=== PATIENT | female | born 1985 | race Caucasian/White ===

== ENCOUNTER 2020-10-25 17:22 | Emergency (ER) | payer BC, SELFPAY ==
--- NOTE | ~2020-10-25 | XR_ITS ---
EXAMINATION: XR knee RT 3V EXAM DATE: 10/25/2020 18:45 INDICATION: Initial encounter following injury, with pain of the right knee. TECHNIQUE: Three projections of the right knee. There is no prior study for comparison. FINDINGS: No evidence osteochondral defect or joint body in the right knee joint. There are no acut e fractures or dislocations identified. There is no subcutaneous gas. The soft tissue is unremarkab le. There are no radiopaque foreign bodies. IMPRESSION: 1. XR knee RT 3V exam without acute osseous findings. Reviewed, dictated and finalized at location A.
--- NOTE | ~2020-10-25 | XR_ITS ---
EXAMINATION: XR ankle RT min 3V EXAM DATE: 10/25/2020 18:44 INDICATION: Initial encounter following injury, with pain of the right ankle. TECHNIQUE: Right ankle frontal, lateral and oblique projections obtained and reviewed. There is no p rior study for comparison. FINDINGS: The right ankle mortise appears intact. There are no acute fractures or dislocations iden tified. There is no subcutaneous gas. The soft tissue is unremarkable. There are no radiopaque fo reign bodies. IMPRESSION: 1. XR ankle RT min 3V exam without acute osseous findings. Reviewed, dictated and finalized at location A.
[2020-10-25 18:02] VITALS: BP 123/77; PULSE 96; RESP 16; TEMP 37.2; O2SAT 99
--- NOTE | 2020-10-25 18:21 | PC.NURSE ---
Xray at bedside.
[2020-10-25] MEDS: ACETAMINOPHEN 500 MG TABLET 1000 MG PO (19:19)
--- NOTE | 2020-10-25 19:52 | ED.LOWEXIN ---
HPI - Extremity Injury (Lower) General Chief Complaint: Extremity Injury, Lower Stated Complaint: FALL DOWN STEPS, R LEG INJURY Time Seen by Provider: 10/25/20 18:47 Source: patient Mode of arrival: EMS Limitations: no limitations History of Present Illness HPI Narrative: This is a 35-year-old female that presents to the emergency department after a fall down steps today. Reports she tripped and fell down about 6 steps. Reports pain in the right knee and ankle since the fall. Denies other injuries, hitting her head or loss of consciousness. Reports bruising and superficial abrasions to the area. Denies decreased range of motion or numbness. Related Data Allergies Allergy/AdvReac Type Severity Reaction Status Date / Time No Known Allergies Allergy Verified 10/25/20 18:06 Review of Systems Review of Systems: Narrative: CONSTITUTIONAL: Denies fever MUSCULOSKELETAL: Reports joint pain, and myalgia. NEUROLOGIC: Denies numbness, or weakness. All systems reviewed & are unremarkable except as noted in HPI and below PMFSH Past Medical History Medical History (Updated 10/25/20 @ 20:28 by Dipika Barrett PA-C) Anxiety and depression Family History Family History (Updated 02/21/18 @ 12:59 by DOCTOR UNKNOWN) Mother Diabetes mellitus Hypertension Social History Social History Smoking status: Never smoker Exam Narrative: Exam Narrative: GENERAL: Well-appearing, well-nourished, and in no acute distress. HEAD: Normocephalic, atraumatic. EYES: PERRLA and EOMI. ENT: Nares clear, no rhinorrhea or epistaxis. Mucous membranes moist. Oropharynx without tonsillar hypertrophy exudate or other lesions. Bilateral TMs pearly steve non-bulging NECK: Supple. No adenopathy or masses. No midline cervical spine tenderness CHEST: Clear to auscultation. No respiratory distress. No wheezes rales or rhonchi HEART: Regular rate and rhythm. No murmur heard. Normal peripheral pulses. BACK: No midline thoracic or lumbar spine tenderness EXTREMITIES: Normal range of motion. No edema or obvious deformity. Right jimenez with superficial abrasions and bruising. Normal DP pulses. Normal sensation SKIN: Warm, dry, no rash. NEURO: No focal deficits. Alert and oriented x3. PSYCH: Normal mood and affect Course Vital Signs Vital signs: Vital Signs Temperature 98.9 F 10/25/20 18:02 Pulse Rate 96 10/25/20 18:02 Respiratory Rate 16 10/25/20 18:02 Blood Pressure 123/77 10/25/20 18:02 Pulse Oximetry 99 10/25/20 18:02 Temperature 98.9 F 10/25/20 18:02 Pulse Rate 96 10/25/20 18:02 Respiratory Rate 16 10/25/20 18:02 Blood Pressure 123/77 10/25/20 18:02 Pulse Oximetry 99 10/25/20 18:02 MDM - Extremity Injury (Lower) MDM Narrative Medical decision making narrative: Patient presents to the emergency department for right knee and ankle pain after a fall down steps. Denies hitting her head or loss of consciousness. She is neurologically intact. Right ankle and knee x-rays are without acute osseous abnormalities. Patient placed in Yvan wrap and given crutches. Instructed on care of ankle sprain. She is to follow-up with primary care doctor. She was given warnings to return to the ER Imaging Data Radiologist's impression: ITS Impressions Ankle X-Ray 10/25/20 18:56 IMPRESSION: 1. XR ankle RT min 3V exam without acute osseous findings. Knee X-Ray 10/25/20 18:58 IMPRESSION: 1. XR knee RT 3V exam without acute osseous findings. Critical Care Time Critical Care Time Critical Care Time: No Discharge Plan Discharge Clinical Impression: Right ankle sprain Qualifiers: Encounter type: initial encounter Involved ligament of ankle: unspecified ligament Qualified Code(s): S93.401A - Sprain of unspecified ligament of right ankle, initial encounter Contusion of leg, right Qualifiers: Encounter type: initial encounter Qualified Code(s): S80.11XA - Contusion of right lower leg,
[2020-10-25] MEDS: KETOROLAC (*BKC) 60 MG/2 ML VIAL IM (21:02)
[2020-10-25 21:22] VITALS: BP 121/68; PULSE 89; RESP 16; O2SAT 100
== END 2020-10-25 21:10 | disposition home or self-care (01) ==
PROVIDERS: Emergency Provider Emergency Medicine; PCP Family Medicine
DX: S93.401A Sprain of unspecified ligament of right ankle, initial encounter (principal); S80.11XA Contusion of right lower leg, initial encounter; W10.9XXA Fall (on) (from) unspecified stairs and steps, initial encounter
CPT/HCPCS: 73562; 73610; 96372; 99283; A9270; J1885

== ENCOUNTER 2020-11-05 09:53 | Outpatient (CLI) | payer BC, SELFPAY ==
--- NOTE | ~2020-11-05 | MR_ITS ---
EXAMINATION: MR ankle RT wo con DATE: 11/05/2020 10:56 INDICATION: Right ankle injury post fall down stairs TECHNIQUE: Magnetic resonance imaging (MRI) of the right ankle was performed without intravenous cont rast. Sequences included sagittal, coronal, and axial proton-density weighted fast spin echo without and with fat saturation. COMPARISON: None. FINDINGS: Medial ankle ligaments: Deep and superficial deltoid ligaments as well as the spring ligament are normal. Lateral ankle ligaments: The anterior and posterior inferior tibiofibular ligaments are normal. The anterior talofibular, calc aneofibular and posterior talofibular ligaments are normal. Tendons: Achilles tendon is normal. The peroneus longus and brevis tendons are normal. The tibialis anterior a nd extensor hallucis longus and extensor digitorum longus tendons are normal. The tibialis posterior, flexor digitorum longus and flexor hallucis longus tendons are normal. Plantar fascia: Plantar aponeurosis is normal. Bones/other: Bone alignment is normal. Bone island at the medial body of the calcaneus. Otherwise normal marrow si gnal throughout with no reactive edema/contusion, fracture or pathologic marrow replacing process. Micki int spaces are normal. Lisfranc ligament complex is normal. Sinus Tarsi and tarsal tunnel are unremar kable. Fluid: Physiologic amount fluid in the joint spaces. No tenosynovitis, bursitis or other abnormal loculated fluid collections. There is subcutaneous edema most prominent of the dorsum of the mid and forefoot. Additional soft tissue swelling and subcutaneous edema anterior to the distal tibia medial underlying the marker indicating the region of concern which given the history of trauma most likely represents a soft tissue contusion. Finally there is some edema at [place] fat pad. IMPRESSION: 1. Soft tissue swelling and subcutaneous edema underlying the marker anterior to the distal tibia mos t likely post traumatic soft tissue contusion. 2. No acute osseous abnormality with normal tendons and stabilizing ligaments at the right ankle, mid and hindfoot. Reviewed, dictated and finalized at location A. IMPRESSION: 1. Soft tissue swelling and subcutaneous edema underlying the marker anterior t o the distal tibia most likely post traumatic soft tissue contusion. 2. No acute osseous abnormality with normal tendons and stabilizing ligaments a t the right ankle, mid and hindfoot.
== END 2020-11-05 09:54 ==
DX: S93.401A Sprain of unspecified ligament of right ankle, initial encounter (principal); X58.XXXA Exposure to other specified factors, initial encounter
CPT/HCPCS: 73721

== ENCOUNTER 2021-12-18 17:05 | Inpatient (IN) | payer BC, SELFPAY ==
[2021-12-18] VITALS (43 sets, daily range): BP systolic 101–146; BP diastolic 71–127; PULSE 72–101; TEMP 36.3–36.8; O2SAT 98–100; BMI 29.8
[2021-12-18 20:01] LABS: Basophils Percent Auto 0.3 % (0.2-1.2); Eosinophils Absolute Auto 0.1 K/mm3 (0-0.3); Hematocrit 36.8 % (37.0-47.0); Hemoglobin 12.5 g/dL (12.0-15.0); Immature Granulocyte Absolute 0.06 K/mm3 (0.00-0.031); Immature Granulocyte Percent A 0.6 % (0-0.5); Lymphocytes Percent Auto 17.7 % (18.3-44.2); Mean Corpuscular Hemoglobin 30.5 pg (26-34); Mean Corpuscular Volume 89.8 fl (80-100); Monocytes Absolute Auto 0.6 K/mm3 (0.1-0.6); Monocytes Percent Auto 5.4 % (2.6-8.5); Neutrophils Absolute Auto 7.7 K/mm3 (1.3-6.7); Platelet Count Result 156 k/mm3 (150-375); Red Cell Distribution Width 14.9 % (11.5-14.5); White Blood Count 10.2 K/mm3 (4.5-10.0)
[2021-12-18] MEDS: FAMOTIDINE 20 MG/2 ML VIAL IV PUSH (21:45)
[2021-12-18] MEDS: LACTATED RINGERS 1,000 ML 125 ML IV CONT (22:00)
[2021-12-18] MEDS: fentaNYL CITRATE INJ (*CRX) 100 MCG/2 ML VIAL 50 MCG IV PUSH (22:48)
--- NOTE | 2021-12-18 22:51 | P.PNAN_ITS ---
Anes - Eval Pre Procedure Procedure: labor epidural Date/Time: 12/18/21 22:51 Surgeon: joaquin Preop Diagnosis: pain during labor Pre Op Diagnosis: SROM Patient Data Age: 36 Gender: F Height: 1.8 m Weight: 97 kg Last Vital Signs Pulse 88 12/18/21 19:31 BP 117/83 12/18/21 19:31 Allergies Allergy/AdvReac Type Severity Reaction Status Date / Time No Known Allergies Allergy Verified 12/07/21 15:21 Home Medications Medication Instructions Recorded Confirmed Type fluoxetine 20 mg capsule (Prozac) 20 mg PO DAILY #90 caps 11/21/19 11/21/19 Rx prenat.vits,felicia,xpf-bruv-vahme 1 tablet PO HS 12/07/21 12/07/21 History Laboratory Tests 12/18/21 12/18/21 12/18/21 19:55 19:55 19:55 WBC 10.2 K/mm3 H K/mm3 (4.5-10.0) RBC 4.10 M/mm3 L M/mm3 (4.2-5.4) Hgb 12.5 g/dL g/dL (12.0-15.0) Hct 36.8 % L % (37.0-47.0) MCV 89.8 fl fl (80-100) MCH 30.5 pg pg (26-34) MCHC 34.0 g/dl g/dl (32-36) RDW 14.9 % H % (11.5-14.5) Plt Count 156 k/mm3 k/mm3 (150-375) MPV 12.0 fl H fl (7.4-10.4) Immature Gran % (Auto) 0.6 % H % (0-0.5) Neut % (Auto) 75.0 % H % (45.5-73.1) Lymph % (Auto) 17.7 % L % (18.3-44.2) [place] % (Auto) 5.4 % % (2.6-8.5) Eos % (Auto) 1.0 % % (0-4.4) Baso % (Auto) 0.3 % % (0.2-1.2) Lymph # (Auto) 1.80 K/mm3 K/mm3 (0.9-3.2) [place] # (Auto) 0.6 K/mm3 K/mm3 (0.1-0.6) Eos # (Auto) 0.1 K/mm3 K/mm3 (0-0.3) Baso # (Auto) 0.0 K/mm3 K/mm3 (0.0-0.1) Abs Immat Gran (auto) 0.06 K/mm3 H K/mm3 (0.00-0.031) Absolute Neuts (auto) 7.7 K/mm3 H K/mm3 (1.3-6.7) Absolute Nucleated RBC 0.0 K/mm3 K/mm3 (0.0-0.012) Nucleated RBC % 0.0 % % (0.0-0.2) RPR Pending Blood Type B Positive Antibody Screen Negative Patient hx anesthesia problems: none Family hx anesthesia problems: none Results Review: All pre-operative results and documents have been reviewed as part of the pre- operative evaluation. [facility] Past Medical History Medical History (Updated 10/26/20 @ 00:00 by Avi Crisostomo) Anxiety and depression Family History Family History (Updated 12/07/21 @ 15:33 by Caleb Levine RN) Mother Diabetes mellitus Bipolar 1 disorder Hypertension Parkinson disease Sibling Cervical cancer Social History Social History Smoking status: Never smoker Substance use: never Spiritual care concerns: No Exam Day of Procedure 12/18/21 22:51
[2021-12-19] VITALS (145 sets, daily range): BP systolic 106–145; BP diastolic 65–114; PULSE 63–287; RESP 16–18; TEMP 36.3–36.8; O2SAT 83–100
[2021-12-19] MEDS: OXYTOCIN 30 UNITS/NS 500 ML 30 UNITS/500 ML BAG IV CONT
[2021-12-19] MEDS: OXYTOCIN 30 UNITS/NS 500 ML 30 UNITS/500 ML BAG 125 UNITS IV CONT (05:39)
--- NOTE | 2021-12-19 06:37 | PM.IMHP ---
H&P: HPI History of Present Illness Date/Time: 12/19/21 06:37 Chief Complaint: Leakage of fluid. Narrative: 36 y/o at 39 6/7 weeks who had a gush of fluid. SROM confirmed on labor and delivery. Contractions worsened subsequently. She was given an epidural. Six hours after SROM, oxytocin was begun IV for labor augmentation. Review of Systems Review of Systems: All systems reviewed & are unremarkable except as noted in HPI and below PMFSH Past Medical History Medical History Anxiety and depression Family History Family History Mother Diabetes mellitus Bipolar 1 disorder Hypertension Parkinson disease Sibling Cervical cancer Social History Social History Smoking status: Never smoker Substance use: never Spiritual care concerns: No Meds Home Medications and Allergies Home Medications Medication Instructions Recorded Confirmed Type fluoxetine 20 mg capsule (Prozac) 20 mg PO DAILY #90 caps 11/21/19 11/21/19 Rx prenat.vits,felicia,zqm-yxlp-hrekd 1 tablet PO HS 12/07/21 12/07/21 History Allergies Allergy/AdvReac Type Severity Reaction Status Date / Time No Known Allergies Allergy Verified 12/07/21 15:21 Vital Signs Vital Signs - 24 hr 12/18/21 19:16 12/18/21 19:31 12/18/21 22:55 Pulse Rate 87 88 Blood Pressure 134/87 117/83 Pulse Oximetry 98 12/18/21 22:56 12/18/21 22:59 12/18/21 23:00 Pulse Rate 94 93 Blood Pressure 140/88 125/88 Pulse Oximetry 99 12/18/21 23:01 12/18/21 23:03 12/18/21 23:05 Pulse Rate 101 H 90 Blood Pressure 121/94 H 136/86 Pulse Oximetry 99 12/18/21 23:06 12/18/21 23:08 12/18/21 23:10 Pulse Rate 93 99 Blood Pressure 136/97 H 129/90 Pulse Oximetry 99 12/18/21 23:11 12/18/21 23:14 12/18/21 23:15 Pulse Rate 84 85 Blood Pressure 144/90 H 146/127 H Pulse Oximetry 100 12/18/21 23:16 12/18/21 23:18 12/18/21 23:20 Pulse Rate 81 90 Blood Pressure 131/77 138/78 Pulse Oximetry 99 12/18/21 23:21 12/18/21 23:23 12/18/21 23:25 Pulse Rate 83 83 Blood Pressure 101/80 122/82 Pulse Oximetry 99 12/18/21 23:26 12/18/21 23:28 12/18/21 23:30 Pulse Rate 78 79 Blood Pressure 130/75 127/73 Pulse Oximetry 99 12/18/21 23:31 12/18/21 23:33 12/18/21 23:35 Pulse Rate 88 79 Blood Pressure 137/71 128/76 Pulse Oximetry 98 12/18/21 23:36 12/18/21 23:38 12/18/21 23:40 Pulse Rate 78 86 Blood Pressure 127/74 123/76 Pulse Oximetry 98 12/18/21 23:41 12/18/21 23:43 12/18/21 23:45 Pulse Rate 80 78 Blood Pressure 129/73 129/72 Pulse Oximetry 98 12/18/21 23:46 12/18/21 23:48 12/18/21 23:50 Pulse Rate 89 80 Blood Pressure 124/75 127/72 Pulse Oximetry 99 12/18/21 23:51 12/18/21 23:53 12/18/21 23:55 Pulse Rate 80 72 Blood Pressure 129/77 129/74 Pulse Oximetry 98 12/18/21 23:56 12/18/21 23:58 12/19/21 00:00 Pulse Rate 84 80 Blood Pressure 125/72 125/78 Pulse Oximetry 97 12/19/21 00:01 12/19/21 00:03 12/19/21 00:05 Pulse Rate 75 84 Blood Pressure 122/73 125/76 Pulse Oximetry 98 12/19/21 00:10 12/19/21 00:15 12/19/21 00:16 Pulse Rate 81 Blood Pressure 106/65 Pulse Oximetry 98 99 12/19/21 00:20 12/19/21 00:25 12/19/21 00:30 Pulse Rate Blood Pressure Pulse Oximetry 97 98 97 12/19/21 00:31 12/19/21 00:35 12/19/21 00:40 Pulse Rate 75 Blood Pressure 126/70 Pulse Oximetry 97 97 12/19/21 00:45 12/19/21 00:46 12/19/21 00:51 Pulse Rate 72 Blood Pressure 124/72 Pulse Oximetry 98 98 97 12/19/21 00:56 12/19/21 01:01 12/19/21 01:06 Pulse Rate 76 Blood Pressure 121/72 Pulse Oximetry 97 97 96 12/19/21 01:11 12/19/21 01:16 12/19/21 01:21 Pulse Rate 74 Blood Pressure 121/66 Pulse Oximetry 97 97 97 12/19/21 01:26 12/19/21 01:
--- NOTE | 2021-12-19 06:43 | PM.OBPRVD ---
OB - Delivery Note Procedure Delivery date: 12/19/21 Procedure: Intrapartal Events: Placental Abruption Induction method: None Delivery augmentation: Pitocin Delivery monitor: External FHT, External Uterine and Internal FHT Route of delivery: Laceration Description: Perineal - 2nd Degree Delivery repair: vicryl (3-0) Quantitative Blood Loss (ml): 770 Anesthesia type: Epidural Disposition: PACU Complications: Placental abruption Narrative: 36 y/o at 39 6/7 weeks gestation who presented to the hospital after a gush of fluid. SROM was confirmed and she was admitted. She began to have some contractions. She received an epidural for pain control. Six hours after ROM, augmentation of labor was offered with oxytocin. Her cervix was 3 cm dilated and NST was category I, 120 bpm and reactive. She took a nap, then awoke to a sensation of pressure. A sudden bradycardia was observed. I was in another room attending a delivery and was called immediately. Her cervix was found to be completely dilated. She pushed with good effort and delivered the infant's head to the perineum, followed by the body. The cord was clamped and cut. The was handed rapidly off the field. The placenta delivered spontaneously and was accompanied by 700 mL blood. The usual 3 vessel cord was noted. A second degree midline perineal laceration was sustained. This was reapproximated using 3 0 Vicryl in the usual layered fashion. Excellent hemostasis resulted as did excellent reapproximation of the normal anatomy. Needle and instrument counts were correct. The patient was taken to recovery room in stable condition. The infant went to the special care nursery. I was present and scrubbed for the entire delivery. [place] Baby Date of : 12/19/21 Time of : 05:07 Weeks of gestation at delivery: 39 gender: Female presentation: vertex position: Left Occiput Anterior Placenta delivery description: Spontaneous Cord Vessel Description: 3 Vessels and Clamped/Cut Narrative: Baby weight and scores not available at time of this note.
--- NOTE | 2021-12-19 06:58 | PM.OBDSVD ---
DS: Admitting Diagnosis Discharge Date 12/20/21 Admitting Diagnosis IUP at 39 6/7 weeks SROM DS: Discharge Diagnosis Discharge Diagnosis (1) SROM (spontaneous rupture of membranes): Status: Acute (2) (normal spontaneous vaginal delivery): Code(s): O80 - Encounter for full-term uncomplicated delivery Status: Acute (3) Placental abruption: Code(s): O45.90 - Premature separation of placenta, unspecified, unspecified trimester Status: Acute OB - DS: Summary OB Procedures : NST OB Procedures Intrapartum: Spontaneous Vag Delivery OB Procedures: : None Time Spent with Patient Time attestation: Total time spent providing and/or coordinating discharge services: DS: Data Data Completed and Pending Labs on day of discharge: Labs from last 24 hours 12/18/21 12/18/21 12/18/21 19:55 19:55 19:55 WBC 10.2 H RBC 4.10 L Hgb 12.5 Hct 36.8 L MCV 89.8 MCH 30.5 MCHC 34.0 RDW 14.9 H Plt Count 156 MPV 12.0 H Immature Gran % (Auto) 0.6 H Neut % (Auto) 75.0 H Lymph % (Auto) 17.7 L [place] % (Auto) 5.4 Eos % (Auto) 1.0 Baso % (Auto) 0.3 Lymph # (Auto) 1.80 [place] # (Auto) 0.6 Eos # (Auto) 0.1 Baso # (Auto) 0.0 Abs Immat Gran (auto) 0.06 H Absolute Neuts (auto) 7.7 H Absolute Nucleated RBC 0.0 Nucleated RBC % 0.0 RPR Pending Blood Type B Positive Antibody Screen Negative Discharge Plan Discharge Attending physician on discharge: Fransisco Silva Discharging Clinician: Fransisco Silva Patient Disposition: Home, Self-Care Activity: pelvic rest Diet: regular Discharge Instructions: Education: Mom and Baby Guide Given to: Mother Follow-Up: Call your delivering provider's office for an appointment to be seen in: 6 Weeks Mom and baby should come to the [facility] for the follow-up appointment. Appointment Date/Time: December 21, 2021 at 9:00 am What to expect at your follow-up visit: Blood Pressure Check Physical Assessment Call [phone] if you are unable to keep your appointment time. BREAST CARE: * Wear a snug supportive bra. * For engorgement discomfort: Breast Feeding: * Apply warm moist washcloths * Express milk as needed to relieve engorgement * Wear loose clothing Bottle Feeding: * May apply ice packs * For sore nipples: * Identify correct latch-on * Apply warm moist washcloths before and after nursing * Air dry nipples after nursing * May apply Lansinoh cream to nipples EPISIOTOMY/PERINEAL CARE: * Until bleeding stops, use your genesis bottle after urinating * Change your pad frequently throughout the day * You may take sitz baths several times a day (fill your bathtub with warm water and soak for 20 minutes.) Do NOT bathe in the water * No tub baths until seen by your physician - You may shower ACTIVITY: * Rest as much as possible. * Do not exercise or lift anything heavier than your baby (such as laundry or other children.) * Avoid stairs or driving as much as possible. * Do not put anything into the vagina. No douching, tampons, or sexual activity until seen by physician. NOTIFY PHYSICIAN IF YOU HAVE ANY QUESTIONS OR IF ANY OF THE FOLLOWING SYMPTOMS OCCUR: * If your vaginal area becomes red, swollen, or more painful than what you have experienced in the hospital. * If your vaginal bleeding becomes foul smelling. * If your vaginal bleeding becomes more heavy than a period or if your bleeding changes from the color it is now to bright crayon red. However, you may pass an occasional walnut-sized clot once or twice for the first week . * If you experience a sharp, shooting pain in your calves. * If you discover a hard, reddened area on your breast or if you experience flu-like symptoms. DIET: * Eat regular, well-balanced meals.
[2021-12-19] MEDS: LORATADINE 10 MG TABLET PO (07:08)
[2021-12-19] MEDS: IBUPROFEN 600 MG TABLET PO ×2 (08:38→22:05)
[2021-12-19 09:17] LABS: Rapid Plasma Reagin Non-Reactive (NonReactive)
--- NOTE | 2021-12-19 09:35 | OBPPTRN ---
Patient transferred to post room #291 via wheelchair. Support person present. Oriented to unit, room, information board, rooming in, admission packet and security measures. Patient verbalizes understanding. Infant was transferred to [facility].
[2021-12-19] MEDS: ACETAMINOPHEN 325 MG TABLET 650 MG PO ×2 (11:00→20:17)
--- NOTE | 2021-12-19 18:17 | PC.NURSE ---
Pt went out on a pass to [facility] to see . [phone].
[2021-12-20] MEDS: ACETAMINOPHEN 325 MG TABLET 650 MG PO (02:01)
[2021-12-20 04:10] VITALS: BP 124/72; PULSE 80; RESP 16; TEMP 36.9
[2021-12-20] MEDS: IBUPROFEN 600 MG TABLET PO (04:11)
[2021-12-20 04:45] LABS: Hematocrit 33.9 % (37.0-47.0); Hemoglobin 11.2 g/dL (12.0-15.0)
--- NOTE | 2021-12-20 07:02 | PM.OBPNVD ---
OB - PN: Subj Subjective Date/time seen: 12/20/21 07:02 Narrative: Pain OK. Baby was transferred to [facility] yesterday, apparently extubated last night. The patient would like to be discharged. OB - PN: Obj Data Labs CBC & Chem 7: 12/20/21 04:17 Labs: Laboratory Results - last 24 hr 12/18/21 12/20/21 19:55 04:17 Hgb 11.2 L Hct 33.9 L RPR Non-reactive OB - PN A/P Assessment and Plan (1) Placental abruption: Code(s): O45.90 - Premature separation of placenta, unspecified, unspecified trimester Status: Acute (2) (normal spontaneous vaginal delivery): Code(s): O80 - Encounter for full-term uncomplicated delivery Status: Acute Assessment and Plan: A: PPD#1, doing well. P: Home to f/u 6 weeks. Exam Psych: Other: AVSS ABD soft, nontender, fundus firm EXT nontender
[2021-12-20] MEDS: MULTIVIT/MIN/PREN/FOL AC/IRON TABLET 1 TAB PO (07:17)
[2021-12-20] MEDS: DOCUSATE SODIUM 100 MG CAPSULE PO (07:18)
[2021-12-20] MEDS: FLUoxetine HCL 20 MG CAPSULE PO (07:18)
[2021-12-20 07:36] VITALS: BP 113/81; PULSE 71; PULSE 80; RESP 16; TEMP 36.5; O2SAT 100; O2SAT 98
[2021-12-21 08:44] VITALS: BP 123/83; PULSE 86; RESP 16; TEMP 36.9; O2SAT 99
== END 2021-12-20 08:05 | disposition home or self-care (01) | DRG 805 ==
LOC: ANHLDR 12-19 07:00 → ANHOB2 12-20 06:49 → ANHLDR 12-22 08:11 → ANHOB2 12-22 08:11
PROVIDERS: Admitting Provider Obstetrics & Gynecology; Visit Provider Obstetrics & Gynecology
DX: O76 Abnormality in fetal heart rate and rhythm complicating labor and delivery (principal); O45.93 Premature separation of placenta, unspecified, third trimester; Z37.0 Single live birth; O99.344 Other mental disorders complicating childbirth; F41.9 Anxiety disorder, unspecified; F32.A Depression, unspecified; O70.1 Second degree perineal laceration during delivery; Z3A.39 39 weeks gestation of pregnancy
CPT/HCPCS: 36415; 84112; 85014; 85018; 85025; 86592; 86850; 86900; 86901; A9270; J2590; J2795; J3010; J7120